=== PATIENT | male | born 1990 | race Caucasian/White ===

== ENCOUNTER 2020-11-02 09:38 | Outpatient (CLI) | payer OTHER, SELFPAY ==
--- NOTE | 2020-11-02 | EST_ITS ---
Patient Info Name: Allan Torrez Age: 29 years : 1990 Gender: Male Ht: 71 in Wt: 150 lbs BSA: 1.84 m2 Exam Date: 11/02/2020 9:56 AM Exam Location: [facility] Stress Patient Status: Outpatient Admit Date: 11/02/2020 Staff Ordering Physician: XavierJose MD Attending Provider: EMELIA JUNIOR Referring Physician: JOSE ESCOTO; Exercise Technologist: Rossy Powell CT Exercise Physician: Emelia Junior MD Exam Type: CA stress test treadmill Study Info An exercise stress test was performed. Summary 1. Exercise capacity very good at >10 METS. 2. No chest discomfort with stress test. 3. Normal exercise treadmill stress test without ischemic EKG changes up to level 96% of max predicted heart rate for age. Protocol: [facility] Stress ECG Details Stage: REST Duration (min): 0 min : 55 sec Speed (mph): 0.0 Grade (%): 0 HR (bpm): 67 SBP (mmHg): 120 DBP (mmHg): 67 METS: --- Stage: REST Duration (min): 2 min : 8 sec Speed (mph): 0.0 Grade (%): 0 HR (bpm): 87 SBP (mmHg): 120 DBP (mmHg): 67 METS: --- Stage: STAGE 1 Duration (min): 1 min : 0 sec Speed (mph): 1.7 Grade (%): 10 HR (bpm): 89 SBP (mmHg): 120 DBP (mmHg): 67 METS: --- Stage: STAGE 1 Duration (min): 2 min : 0 sec Speed (mph): 1.7 Grade (%): 10 HR (bpm): 98 SBP (mmHg): 120 DBP (mmHg): 67 METS: --- Stage: STAGE 1 Duration (min): 3 min : 0 sec Speed (mph): 1.7 Grade (%): 10 HR (bpm): 88 SBP (mmHg): 146 DBP (mmHg): 70 METS: --- Stage: STAGE 2 Duration (min): 1 min : 0 sec Speed (mph): 2.5 Grade (%): 12 HR (bpm): 105 SBP (mmHg): 146 DBP (mmHg): 70 METS: --- Stage: STAGE 2 Duration (min): 2 min : 0 sec Speed (mph): 2.5 Grade (%): 12 HR (bpm): 109 SBP (mmHg): 136 DBP (mmHg): 67 METS: --- Stage: STAGE 2 Duration (min): 3 min : 0 sec Speed (mph): 2.5 Grade (%): 12 HR (bpm): 103 SBP (mmHg): 136 DBP (mmHg): 67 METS: --- Stage: STAGE 3 Duration (min): 1 min : 0 sec Speed (mph): 3.4 Grade (%): 14 HR (bpm): 126 SBP (mmHg): 132 DBP (mmHg): 63 METS: --- Stage: STAGE 3 Duration (min): 2 min : 0 sec Speed (mph): 3.4 Grade (%): 14 HR (bpm): 135 SBP (mmHg): 132 DBP (mmHg): 63 METS: --- Stage: STAGE 3 Duration (min): 3 min : 0 sec Speed (mph): 3.4 Grade (%): 14 HR (bpm): 140 SBP (mmHg): 164 DBP (mmHg): 62 METS: --- Stage: STAGE 4 Duration (min): 1 min : 0 sec Speed (mph): 4.2 Grade (%): 16 HR (bpm): 164 SBP (mmHg): 164 DBP (mmHg): 62 METS: --- Stage: STAGE 4 Duration (min): 2 min : 0 sec Speed (mph): 4.2 Grade (%): 16 HR (bpm): 169 SBP (mmHg): 182 DBP (mmHg): 68 METS: --- Stage
== END 2020-11-02 09:39 | disposition home or self-care (01) ==
LOC: ANHCARD 09:39
PROVIDERS: PCP Internal Medicine; Visit Provider Internal Medicine
DX: R06.02 Shortness of breath (principal)
CPT/HCPCS: 93017